=== PATIENT | female | born 1950 | race Caucasian/White ===

== ENCOUNTER → 2019-01-07 | Outpatient (CLI) | payer OTHER ==
[~2019-01-07] MED LIST: AUGMENTIN 875 M1 TAB PO; CELEBREX 1100 MG/CAP PO; DILAUDID 4MG TAB4 MG PO; ESZOPICOLONE; FERROUS SU325 MG/TAB PO; FOLIC ACID PO; LORTAB 5/500 501 TAB PO; LUNESTA3 MG PO; NEURONTIN300 MG/CAP PO; NORCO 325 MG-101 TAB PO; PREMARIN0.625 MG PO; TEMAZEPAM30 MG PO; ULTRAM 50MG TAB50 MG PO; VITAMIN C250250 MG PO; ZOLOFT100 MG PO; antidepressant
== END ==
LOC: MC.RAD 14:21
DX: Z12.31 Encounter for screening mammogram for malignant neoplasm of breast (principal)

== ENCOUNTER → 2019-06-07 | Outpatient (CLI) | payer OTHER | LOC: COL.PUL 06-01 08:00 | DX: R05 Cough (principal) ==

== ENCOUNTER → 2019-07-22 | Outpatient (CLI) | payer OTHER | LOC: COL.RAD 07-20 08:00 | DX: Z01.812 Encounter for preprocedural laboratory examination (principal); R05 Cough | CPT/HCPCS: Q9967 ==

== ENCOUNTER → 2019-08-05 | Outpatient (CLI) | payer OTHER | LOC: COL.PUL 07-20 10:00 | DX: R05 Cough (principal) | CPT/HCPCS: J7674 ==

== ENCOUNTER 2020-05-18 14:34 | Emergency (ER) | payer MEDICARE ==
[~2020-05-18] VITALS: Ht 157.5 cm; Wt 68.2 kg
[~2020-05-18 14:34] MED LIST changes: +COZAAR 50MG50 MG/TAB PO; +NORCO 325 MG-7.1 TAB PO; +PROTONIX 40MG T40 MG PO
[2020-05-18 14:58] VITALS: TEMP 98.3
[2020-05-18 18:48] LABS: BASO # 0.1 (0.0-0.2); BASO % 0.9 % (0.0-2.0); EOS # 0.1 (0.0-0.7); EOS % 1.5 % (0-4.0); GRAN # 6.5 (1.4-6.5); GRAN % 69.1 % (42.2-75.2); HEMATOCRIT 43.8 % (37.0-47.0); HEMOGLOBIN 14.8 g/dl (12.5-16.0); LYMPH % 21.7 % (20.0-51.0); MEAN CELL VOLUME 86 fl (80.0-100.0); MEAN CORPUSCULAR HEMOGLOBIN 29 pg (27.0-31.0); MEAN CORPUSCULAR HGB CONC 34 g/dl (33.0-37.0); MEAN PLATELET VOLUME 9.7 fl (7.4-10.4); MONO # 0.6 (0.1-0.6); MONO % 6.6 % (1.7-9.3); PLATELET COUNT 290 K/mm3 (130-400); RED BLOOD COUNT 5.12 M/mm3 (4.10-5.30)
[2020-05-18 19:11] LABS: CALCIUM 9.9 mg/dL (8.4-10.2); CREATININE, serum 0.78 (0.52-1.25); POTASSIUM 4.1 mmol/L (3.4-5.0)
[2020-05-18] MEDS ORDERED: FLEXERIL 1010 MG/TAB PO (19:45)
[2020-05-18] MEDS ORDERED: NORCO 325 MG-7.1 TAB PO (19:46)
[2020-05-18 19:56] VITALS: BP 156/82; PULSE 95
== END 2020-05-18 19:56 | disposition home or self-care (01) ==
LOC: COL.ER 14:34
PROVIDERS: Nurse Practitioner Family
DX: M25.562 Pain in left knee (principal); E78.5 Hyperlipidemia, unspecified; Z85.038 Personal history of other malignant neoplasm of large intestine; Z88.5 Allergy status to narcotic agent; V84.5XXA Driver of special agricultural vehicle injured in nontraffic accident, initial encounter

== ENCOUNTER → 2020-06-28 | Outpatient (CLI) | payer MEDICARE ==
[~2020-06-28] MED LIST changes: +FLEXERIL 1010 MG/TAB PO
== END ==
LOC: COL.VAS 10:37
DX: M25.462 Effusion, left knee (principal); M25.562 Pain in left knee

== ENCOUNTER → 2020-08-24 | Outpatient (CLI) | payer MEDICARE ==
[~2020-08-24] MED LIST changes: +ABILIFY5 MG PO; +ASPIRIN 81M81 MG/TA2 PO; +CEFAZOLIN SODI100 ML IV; +CEPHALEXIN500 M1 PO; +LUNESTA2 MG PO; +MOBIC 7.5MG7.5 MG PO; +NORCO 325 MG-51 TAB PO; +ZOCOR 20MG20 MG PO; +ZOLOFT 100MG100 MG PO
== END ==
LOC: COL.VAS 08:17
DX: M79.89 Other specified soft tissue disorders (principal); Z98.890 Other specified postprocedural states

== ENCOUNTER 2020-09-20 08:00 | Outpatient (RCR) | payer MEDICARE ==
--- NOTE | 2020-08-16 09:00 | NUR ---
Here for IV antibiotics. PICC intact right upper arm with dressing dated 08/08/2020. Sterile dressing change done with insertion site cleansed with chloraprep x 1, chlorhexidine impregnated disk applied, skin prep, stat lock, and tegaderm applied. no signs or symptoms of IV complications noted. no concerns voiced. crying and upset regarding discharge plan. Having difficulty at home with mobility. reports pain in left knee and unable to take pain medication while driving. request a hand cap sticker and ? wheelchair or walker at home. Caitie Orlando informed.
[2020-08-16 09:04] VITALS: BP 147/87; PULSE 84; TEMP 98.8
[2020-08-16 10:30] LABS: BASO # 0.1 (0.0-0.2); BASO % 0.6 % (0.0-2.0); EOS # 0.3 (0.0-0.7); EOS % 2.4 % (0-4.0); GRAN # 7.8 (1.4-6.5); GRAN % 73.2 % (42.2-75.2); HEMATOCRIT 38.2 % (37.0-47.0); HEMOGLOBIN 12.1 g/dl (12.5-16.0); LYMPH # 1.5 (1.2-3.4); LYMPH % 13.7 % (20.0-51.0); MEAN CELL VOLUME 88 fl (80.0-100.0); MEAN CORPUSCULAR HEMOGLOBIN 28 pg (27.0-31.0); MEAN CORPUSCULAR HGB CONC 32 g/dl (33.0-37.0); MEAN PLATELET VOLUME 9.3 fl (7.4-10.4); MONO % 9.4 % (1.7-9.3); PLATELET COUNT 347 K/mm3 (130-400); RED BLOOD COUNT 4.36 M/mm3 (4.10-5.30); REDCELL DISTRIBUTION WIDTH-CV 11.9 % (11.5-14.5)
[2020-08-16 10:44] LABS: ALBUMIN 4.1 gm/dL (3.5-5.0); BILIRUBIN,TOTAL 0.4 mg/dL (0.0-1.0); C-REACTIVE PROTEIN 1.6 mg/dL (0.0-0.9); CALCIUM 9.5 mg/dL (8.4-10.2); CREATININE, serum 0.63 (0.52-1.25); POTASSIUM 4.3 mmol/L (3.4-5.0); TOTAL PROTEIN 7.3 gm/dL (6.4-8.2)
--- NOTE | 2020-08-16 10:45 | NUR ---
lease out worker met with patient due to concerns with obtaining IV antibiotics. Patient recently was discharged from this hospital to [facility] for skilled care of IV antibiotics (six weeks) and physical therapy. Worker confirmed with Padma at [facility], that patient demanded a discharge to her home on 08/15 and a change to obtainining her IV antibiotics at the hospital [facility]. Padma states that patient contacted her insurance company (that had authorized 7 days at [facility]) and cancelled the authorization for skilled care. Patient states that she is having difficulty parking and ambulating into the buildings. Worker collaborated with Dr Cheng's manager technical sales (Ewa) to have a Handicap application signed and be picked up by the patient. Patient verbalizes appreciation for this and is aware that she will need to take signed form from physician to the local courthouse to obtain. Worker and patient discussed alternative transportation, however, patient feels that her only option now is to drive herself, as she did this date. Worker updated Ewa at Dr Cheng's office of the above information. Patient is using her walker and will obtain the rest of her IV antibiotics (one time daily) at the [facility]. Worker collaborated with Sherlyn (picc nurse) and patient's nurse regarding the above information.
[2020-08-16 10:52] LABS: ERYTHROCYTE SEDIMENTATION RATE 29 mm/hr (0-30)
[2020-08-17 08:30] VITALS: BP 147/80; PULSE 86; TEMP 99.1
--- NOTE | 2020-08-17 09:00 | NUR ---
Upper edge of PICC dressing is not intact. Dressing is intact at the insertion site. PICC sterile dressing change done with insertion site cleansed with chloraprep x 1, chlorhexidine impregnated disk applied, skin prep, stat lock, and tegaderm applied. no signs or symptoms of IV complications noted. no concerns voiced. explained importance of keeping dressing intact. voiced understanding.
[2020-08-18 08:26] VITALS: BP 167/93; PULSE 98; TEMP 98.1
[2020-08-19 08:17] VITALS: BP 159/96; PULSE 88; TEMP 98.8
[2020-08-20 08:29] VITALS: BP 144/88; PULSE 89; TEMP 98.4
[2020-08-20 08:30] LABS: BASO # 0.1 (0.0-0.2); BASO % 0.5 % (0.0-2.0); EOS # 0.2 (0.0-0.7); EOS % 1.5 % (0-4.0); GRAN # 8.8 (1.4-6.5); GRAN % 76.2 % (42.2-75.2); HEMATOCRIT 38.4 % (37.0-47.0); HEMOGLOBIN 12.5 g/dl (12.5-16.0); LYMPH # 1.9 (1.2-3.4); LYMPH % 16.4 % (20.0-51.0); MEAN CELL VOLUME 87 fl (80.0-100.0); MEAN CORPUSCULAR HEMOGLOBIN 28 pg (27.0-31.0); MEAN CORPUSCULAR HGB CONC 33 g/dl (33.0-37.0); MEAN PLATELET VOLUME 9.5 fl (7.4-10.4); MONO # 0.6 (0.1-0.6); MONO % 5.1 % (1.7-9.3); PLATELET COUNT 426 K/mm3 (130-400); RED BLOOD COUNT 4.42 M/mm3 (4.10-5.30)
[2020-08-20 08:38] LABS: ALBUMIN 4.4 gm/dL (3.5-5.0); BILIRUBIN,TOTAL 0.4 mg/dL (0.0-1.0); C-REACTIVE PROTEIN 0.8 mg/dL (0.0-0.9); CALCIUM 9.8 mg/dL (8.4-10.2); CREATININE, serum 0.65 (0.52-1.25); POTASSIUM 4.4 mmol/L (3.4-5.0); TOTAL PROTEIN 7.7 gm/dL (6.4-8.2)
[2020-08-20 09:15] LABS: ERYTHROCYTE SEDIMENTATION RATE 13 mm/hr (0-30)
[2020-08-21 08:12] VITALS: BP 139/98; PULSE 93; TEMP 98
[2020-08-22 08:30] VITALS: BP 115/94; PULSE 88; TEMP 98.4
[2020-08-23 08:24] VITALS: BP 136/84; PULSE 90; TEMP 98.6
[2020-08-24 08:35] VITALS: BP 136/96; PULSE 89; TEMP 99.1
[2020-08-26 08:57] VITALS: BP 158/92; PULSE 92; TEMP 98.8
[2020-08-27 08:29] LABS: BASO # 0.1 (0.0-0.2); BASO % 1.1 % (0.0-2.0); EOS # 0.4 (0.0-0.7); EOS % 4.8 % (0-4.0); GRAN # 5.5 (1.4-6.5); GRAN % 67.7 % (42.2-75.2); HEMATOCRIT 39.6 % (37.0-47.0); HEMOGLOBIN 12.9 g/dl (12.5-16.0); LYMPH # 1.6 (1.2-3.4); LYMPH % 19.1 % (20.0-51.0); MEAN CELL VOLUME 87 fl (80.0-100.0); MEAN CORPUSCULAR HEMOGLOBIN 28 pg (27.0-31.0); MEAN CORPUSCULAR HGB CONC 33 g/dl (33.0-37.0); MEAN PLATELET VOLUME 9.5 fl (7.4-10.4); MONO # 0.6 (0.1-0.6); MONO % 7.1 % (1.7-9.3); PLATELET COUNT 496 K/mm3 (130-400); RED BLOOD COUNT 4.56 M/mm3 (4.10-5.30); REDCELL DISTRIBUTION WIDTH-CV 12.1 % (11.5-14.5)
[2020-08-27 08:49] VITALS: BP 151/90; PULSE 91; TEMP 98.4
[2020-08-27 08:50] LABS: ALBUMIN 4.5 gm/dL (3.5-5.0); BILIRUBIN,TOTAL 0.5 mg/dL (0.0-1.0); CALCIUM 9.9 mg/dL (8.4-10.2); CREATININE, serum 0.69 (0.52-1.25); POTASSIUM 4.6 mmol/L (3.4-5.0); TOTAL PROTEIN 7.8 gm/dL (6.4-8.2)
[2020-08-27 08:52] LABS: C-REACTIVE PROTEIN 0.5 mg/dL (0.0-0.9)
[2020-08-27 09:13] LABS: ERYTHROCYTE SEDIMENTATION RATE 11 mm/hr (0-30)
[2020-08-28 08:32] VITALS: BP 152/93; PULSE 89; TEMP 98.9
[2020-08-29 08:15] VITALS: BP 147/97; PULSE 90; TEMP 98.5
[2020-08-30 08:30] VITALS: BP 146/103; PULSE 93; TEMP 98.7
[2020-08-31 08:30] VITALS: BP 145/92; PULSE 92; TEMP 98.4
[2020-09-01 09:16] VITALS: BP 154/97; PULSE 92; TEMP 98.2
[2020-09-02 09:30] VITALS: BP 147/85; PULSE 99; TEMP 98.4
[2020-09-03 08:13] VITALS: BP 149/91; PULSE 87; TEMP 98.1
[2020-09-03 08:36] LABS: BASO # 0.1 (0.0-0.2); BASO % 0.6 % (0.0-2.0); EOS # 0.7 (0.0-0.7); EOS % 8.7 % (0-4.0); GRAN # 5.3 (1.4-6.5); GRAN % 67.2 % (42.2-75.2); HEMATOCRIT 38.4 % (37.0-47.0); HEMOGLOBIN 12.3 g/dl (12.5-16.0); LYMPH # 1.3 (1.2-3.4); MEAN CELL VOLUME 88 fl (80.0-100.0); MEAN CORPUSCULAR HEMOGLOBIN 28 pg (27.0-31.0); MEAN CORPUSCULAR HGB CONC 32 g/dl (33.0-37.0); MEAN PLATELET VOLUME 9.7 fl (7.4-10.4); MONO # 0.5 (0.1-0.6); MONO % 6.2 % (1.7-9.3); PLATELET COUNT 330 K/mm3 (130-400); RED BLOOD COUNT 4.39 M/mm3 (4.10-5.30); REDCELL DISTRIBUTION WIDTH-CV 12.2 % (11.5-14.5)
[2020-09-03 08:44] LABS: ALBUMIN 4.2 gm/dL (3.5-5.0); BILIRUBIN,TOTAL 0.5 mg/dL (0.0-1.0); C-REACTIVE PROTEIN 0.7 mg/dL (0.0-0.9); CALCIUM 9.6 mg/dL (8.4-10.2); CREATININE, serum 0.68 (0.52-1.25); POTASSIUM 4.4 mmol/L (3.4-5.0); TOTAL PROTEIN 7.1 gm/dL (6.4-8.2)
[2020-09-03 09:36] LABS: ERYTHROCYTE SEDIMENTATION RATE 7 mm/hr (0-30)
[2020-09-04 08:11] VITALS: BP 147/94; PULSE 86; TEMP 98.1
[2020-09-05 08:29] VITALS: BP 163/85; PULSE 86; TEMP 97.8
[2020-09-06 08:23] VITALS: BP 143/82; PULSE 88; TEMP 98
[2020-09-07 08:39] VITALS: BP 139/79; PULSE 85; TEMP 98.4
[2020-09-08 09:42] VITALS: BP 148/99; PULSE 85; TEMP 98.1
[2020-09-09 09:38] VITALS: BP 131/81; PULSE 95; TEMP 97.7
[2020-09-10 08:05] VITALS: BP 127/82; PULSE 94; TEMP 98.5
[2020-09-10 08:26] LABS: BASO # 0.1 (0.0-0.2); BASO % 1.1 % (0.0-2.0); EOS # 0.4 (0.0-0.7); EOS % 5.3 % (0-4.0); GRAN # 5.6 (1.4-6.5); GRAN % 68.6 % (42.2-75.2); HEMATOCRIT 39.8 % (37.0-47.0); LYMPH # 1.6 (1.2-3.4); LYMPH % 19.2 % (20.0-51.0); MEAN CELL VOLUME 86 fl (80.0-100.0); MEAN CORPUSCULAR HEMOGLOBIN 28 pg (27.0-31.0); MEAN CORPUSCULAR HGB CONC 33 g/dl (33.0-37.0); MEAN PLATELET VOLUME 9.8 fl (7.4-10.4); MONO # 0.5 (0.1-0.6); MONO % 5.7 % (1.7-9.3); PLATELET COUNT 231 K/mm3 (130-400); RED BLOOD COUNT 4.63 M/mm3 (4.10-5.30); REDCELL DISTRIBUTION WIDTH-CV 12.3 % (11.5-14.5)
[2020-09-10 08:40] LABS: ALBUMIN 4.4 gm/dL (3.5-5.0); BILIRUBIN,TOTAL 0.4 mg/dL (0.0-1.0); CALCIUM 9.4 mg/dL (8.4-10.2); CREATININE, serum 0.75 (0.52-1.25); POTASSIUM 4.2 mmol/L (3.4-5.0); TOTAL PROTEIN 7.4 gm/dL (6.4-8.2)
[2020-09-10 08:41] LABS: C-REACTIVE PROTEIN 0.5 mg/dL (0.0-0.9)
[2020-09-10 08:47] LABS: ERYTHROCYTE SEDIMENTATION RATE 7 mm/hr (0-30)
[2020-09-11 09:01] VITALS: BP 152/79; PULSE 76; PULSE 86; TEMP 98.5
[2020-09-12 08:45] VITALS: BP 134/84; PULSE 91; TEMP 98.5
[2020-09-13 08:56] VITALS: BP 137/86; PULSE 86; TEMP 98.5
[2020-09-14 08:21] VITALS: BP 156/92; PULSE 87; TEMP 98.5
[2020-09-15 09:06] VITALS: BP 136/88; PULSE 83; TEMP 98.1
[2020-09-16 09:00] VITALS: BP 151/90; PULSE 80; TEMP 98.5
--- NOTE | 2020-09-17 08:40 | NUR ---
Patient reported PICC dressing wet due to taking a shower. PICC intact right upper arm with sterile dressing change done with insertion site cleansed with chloraprep x 1, chlorhexidine impregnated disk applied, stat lock, skin prep, and tegaderm applied. disk was wet. no other signs or symptoms of IV complications noted. no other concerns voiced. to continue with IV antibiotics in [place] as scheduled. voiced understanding of instructions.
[2020-09-17 08:51] LABS: BASO # 0.1 (0.0-0.2); EOS # 0.3 (0.0-0.7); EOS % 3.6 % (0-4.0); GRAN # 6.1 (1.4-6.5); GRAN % 73.7 % (42.2-75.2); HEMATOCRIT 38.8 % (37.0-47.0); HEMOGLOBIN 12.8 g/dl (12.5-16.0); LYMPH # 1.4 (1.2-3.4); MEAN CELL VOLUME 84 fl (80.0-100.0); MEAN CORPUSCULAR HEMOGLOBIN 28 pg (27.0-31.0); MEAN CORPUSCULAR HGB CONC 33 g/dl (33.0-37.0); MEAN PLATELET VOLUME 10.2 fl (7.4-10.4); MONO # 0.4 (0.1-0.6); MONO % 4.5 % (1.7-9.3); PLATELET COUNT 287 K/mm3 (130-400); REDCELL DISTRIBUTION WIDTH-CV 12.4 % (11.5-14.5)
[2020-09-17 08:54] VITALS: BP 151/90; PULSE 90; TEMP 98.2
[2020-09-17 09:05] LABS: ALBUMIN 4.2 gm/dL (3.5-5.0); BILIRUBIN,TOTAL 0.4 mg/dL (0.0-1.0); C-REACTIVE PROTEIN 0.8 mg/dL (0.0-0.9); CALCIUM 9.6 mg/dL (8.4-10.2); CREATININE, serum 0.71 (0.52-1.25); POTASSIUM 4.2 mmol/L (3.4-5.0); TOTAL PROTEIN 7.7 gm/dL (6.4-8.2)
[2020-09-18 08:17] VITALS: BP 127/85; PULSE 87; TEMP 98.3
[2020-09-19 08:27] VITALS: BP 159/91; PULSE 81; TEMP 98.6
[~2020-09-20] VITALS: Ht 157.5 cm; Wt 67.6 kg
[~2020-09-20 08:00] MED LIST changes: -CEPHALEXIN500 M1 PO
[2020-09-20 08:18] VITALS: BP 140/87; PULSE 84; TEMP 98
[2020-09-20] MEDS ORDERED: CEPHALEXIN500 M1 PO (08:22)
== END 2020-09-20 10:00 | disposition home or self-care (01) ==
LOC: EUO 08:00
PROVIDERS: Internal Medicine Infectious Disease
DX: B99.9 Unspecified infectious disease (principal); Z95.9 Presence of cardiac and vascular implant and graft, unspecified
CPT/HCPCS: J0878

== ENCOUNTER → 2021-05-16 | Outpatient (CLI) | payer MEDICARE ==
[~2021-05-16] MED LIST changes: +CEPHALEXIN500 M1 PO
== END ==
LOC: MC.RAD 10:37
DX: Z12.31 Encounter for screening mammogram for malignant neoplasm of breast (principal)

== ENCOUNTER 2022-01-16 11:46 | Emergency (ER) | payer MEDICARE ==
[~2022-01-16] VITALS: Ht 157.5 cm; Wt 64.5 kg
[2022-01-16 11:56] VITALS: TEMP 97.9
[2022-01-16 13:17] LABS: BASO # 0.1 K/mm3 (0.0-0.2); EOS # 0.1 K/mm3 (0.0-0.7); EOS % 0.9 % (0.0-4.0); GRAN # 6.2 K/mm3 (1.4-6.5); GRAN % 67.1 % (42.2-75.2); HEMATOCRIT 41.8 % (37.0-47.0); HEMOGLOBIN 13.9 g/dl (12.5-16.0); LYMPH # 2.2 K/mm3 (1.2-3.4); MEAN CELL VOLUME 85 fl (80.0-100.0); MEAN CORPUSCULAR HEMOGLOBIN 28 pg (27-31); MEAN CORPUSCULAR HGB CONC 33 g/dl (33.0-37.0); MEAN PLATELET VOLUME 9.6 fl (7.4-10.4); MONO # 0.6 K/mm3 (0.1-0.6); MONO % 6.7 % (1.7-9.3); PLATELET COUNT 299 K/mm3 (130-400); RED BLOOD COUNT 4.93 M/mm3 (4.10-5.30)
[2022-01-16 13:29] LABS: ALBUMIN 4.2 gm/dL (3.4-4.8); ANION GAP 11 mmol/L (7-16); BLOOD UREA NITROGEN 14 mg/dL (10-20); CALCIUM 9.8 mg/dL (8.4-10.2); CARBON DIOXIDE 23 mmol/L (23-31); CHLORIDE 108 mmol/L (98-107); CREATININE, serum 0.77 mg/dL (0.57-1.11); GLUCOSE 93 mg/dL (70-99); PHOSPHOROUS 2.6 mg/dL (2.3-4.7); POTASSIUM 4.1 mmol/L (3.5-4.5); SODIUM 142 mmol/L (136-145)
[2022-01-16 13:46] LABS: TROPONIN-I < 0.010 ng/mL (0.00-0.033)
[2022-01-16 14:33] VITALS: BP 141/85; PULSE 61
== END 2022-01-16 14:40 | disposition home or self-care (01) ==
LOC: COL.ER 11:46
PROVIDERS: Emergency Medicine
DX: F43.22 Adjustment disorder with anxiety (principal)

== ENCOUNTER 2023-07-16 14:11 | Emergency (ER) | payer MEDICARE ==
[~2023-07-16] VITALS: Ht 157.5 cm; Wt 63.6 kg
[2023-07-16 14:16] VITALS: TEMP 98.4
[2023-07-16 14:36] LABS: BASO # 0.1 K/mm3 (0.0-0.2); BASO % 0.5 % (0.0-2.0); EOS # 0.3 K/mm3 (0.0-0.7); EOS % 3.4 % (0.0-4.0); GRAN # 6.9 K/mm3 (1.4-6.5); GRAN % 75.6 % (42.2-75.2); HEMATOCRIT 42.5 % (37.0-47.0); HEMOGLOBIN 14.6 g/dl (12.5-16.0); LYMPH # 1.3 K/mm3 (1.2-3.4); LYMPH % 13.8 % (20.0-51.0); MEAN CELL VOLUME 86 fl (80.0-100.0); MEAN CORPUSCULAR HEMOGLOBIN 29 pg (27-31); MEAN CORPUSCULAR HGB CONC 34 g/dl (33.0-37.0); MEAN PLATELET VOLUME 9.7 fl (7.4-10.4); MONO # 0.6 K/mm3 (0.1-0.6); MONO % 6.5 % (1.7-9.3); PLATELET COUNT 341 K/mm3 (130-400); RED BLOOD COUNT 4.97 M/mm3 (4.10-5.30)
[2023-07-16 14:51] LABS: INR 1.1 (0.8-3.0); PROTHROMBIN TIME 11.9 SECONDS (9.7-12.8)
[2023-07-16 14:53] LABS: ALANINE AMINOTRANSFERASE 13 U/L (0-55); ALBUMIN 4.2 gm/dL (3.4-4.8); ALKALINE PHOSPHATASE 65 U/L (40-150); ANION GAP 9 mmol/L (7-16); AST,SGOT 15 U/L (5-34); BILIRUBIN,TOTAL 0.4 mg/dL (0.2-1.2); BLOOD UREA NITROGEN 16 mg/dL (10-20); CARBON DIOXIDE 23 mmol/L (23-31); CHLORIDE 110 mmol/L (98-107); CREATININE, serum 0.81 mg/dL (0.57-1.11); GLUCOSE 108 mg/dL (70-99); PARTIAL THROMBOPLASTIN TIME 28.2 SECONDS (26.0-37.0); POTASSIUM 4.1 mmol/L (3.5-4.5); SODIUM 142 mmol/L (136-145); TOTAL PROTEIN 7.5 gm/dL (6.2-8.1)
[2023-07-16 15:09] LABS: TROPONIN-I < 0.010 ng/mL (0.00-0.033)
[2023-07-16] MEDS ORDERED: LORazepam 2 MG/ML 1 ML VIAL IV ONE (15:15)
[2023-07-16] MEDS ORDERED: Ondansetron 4 MG/2 ML VIAL IV ONE (15:15)
[2023-07-16] MEDS ORDERED: NS 1,000 ML IV ONE (15:15)
[2023-07-16] MEDS ORDERED: Iohexol 300 - 100 ML VIAL IV ONE (16:00)
[2023-07-16] MEDS ORDERED: NS 100 ML IV SCH (16:01)
[2023-07-16] MEDS ORDERED: Mag/Al Hydrox/Simeth Susp 30 ML CUP PO ONE (17:00)
[2023-07-16 17:02] LABS: COLLECTION METHOD CLEAN CATCH
[2023-07-16 17:26] LABS: PH 5.5 (5.0-8.5); URINE APPEARANCE Clear (CLEAR/HAZY); URINE BLOOD Negative (NEGATIVE); URINE COLOR Yellow (YELLOW); URINE GLUCOSE Negative (NEGATIVE); URINE KETONE Negative (NEGATIVE); URINE NITRATE Negative (NEGATIVE); URINE PROTEIN(semi-quant) Negative (NEGATIVE); URINE UROBILINOGEN 0.2 E.U/dL (0.2-1.0)
[2023-07-16 17:35] LABS: SQUAMOUS EPITHELIAL 0-2 /hpf (0-10); URINE BACTERIA Rare /hpf (NONE SEEN); URINE RBC None Seen /hpf (0-2)
[2023-07-16 17:48] VITALS: BP 145/91; PULSE 67
== END 2023-07-16 17:48 | disposition home or self-care (01) ==
LOC: COL.ER 14:11
PROVIDERS: Family Medicine; Physician Assistant
DX: R10.10 Upper abdominal pain, unspecified (principal); R19.7 Diarrhea, unspecified; R11.2 Nausea with vomiting, unspecified; R07.89 Other chest pain; Z87.19 Personal history of other diseases of the digestive system; Z90.49 Acquired absence of other specified parts of digestive tract; Z93.3 Colostomy status
CPT/HCPCS: J0780; J2060; J2405; J7030; Q9967